=== PATIENT | female | born 1985 | race Caucasian/White ===

== ENCOUNTER → 2021-07-21 | Outpatient (CLI) | payer OTHER | LOC: ECHO 11:25 → NM 14:30 | DX: R06.00 Dyspnea, unspecified (principal) | CPT/HCPCS: ECHO; 93017; 93306 ==

== ENCOUNTER → 2021-11-14 | Outpatient (CLI) | payer OTHER | LOC: KOH-I 12:16 | DX: M79.642 Pain in left hand (principal); M53.3 Sacrococcygeal disorders, not elsewhere classified; W19.XXXA Unspecified fall, initial encounter | CPT/HCPCS: 72100; 72220; 73110; 73130 ==

== ENCOUNTER → 2021-11-16 | Outpatient (CLI) | payer OTHER | LOC: KOH-I 08:52 | DX: R93.7 Abnormal findings on diagnostic imaging of other parts of musculoskeletal system (principal); W19.XXXA Unspecified fall, initial encounter | CPT/HCPCS: 72192 ==